=== PATIENT | male | born 1965 | race American Indian/Alaskan Native ===

== ENCOUNTER 2019-09-20 13:38 | Inpatient (IN) | payer MEDICAID ==
[2019-09-20 14:40] LABS: Basophils % (Auto) 0.3 % (0.0-1.8); Eosinophils % (Auto) 0.2 % (0.0-4.3); Lymphocytes # (Auto) 1.7 K/mm3 (1.2-5.4); Lymphocytes % (Auto) 13.3 % (13.4-35.0); Mean Corpuscular HGB Conc 30 % (32-34); Mean Corpuscular Volume 89 fl (84-94); Monocytes # (Auto) 0.8 K/mm3 (0.0-0.8); Monocytes % (Auto) 6.8 % (0.0-7.3); Platelet Count 470 K/mm3 (140-440); Red Blood Count 2.08 M/mm3 (3.65-5.03)
[2019-09-20 14:56] LABS: Albumin 4.3 g/dL (3.9-5); Calcium 9.4 mg/dL (8.4-10.2); Hematocrit 18.5 % (35.5-45.6); Hemoglobin 5.6 gm/dl (11.8-15.2)
[2019-09-20 14:57] LABS: Red Cell Distribution Width 22.6 % (13.2-15.2)
[2019-09-20] MEDS ORDERED: SODIUM CHLORIDE 0.9% 500 ML 500 ML IV ONE (15:00)
[2019-09-20] MEDS ORDERED: SODIUM CHLORIDE 0.9% 1000 ML 1,000 ML IV ONE (15:00)
[2019-09-20] MEDS ORDERED: PANTOPRAZOLE 40 MG INJ IV ONE (15:07)
--- NOTE | 2019-09-20 15:17 | Emergency Department Report ---
HPI - General Chief Complaint: Abdominal Pain PUI?: No Time Seen by Provider: 09/20/19 14:53 - HPI HPI: Room 3 The patient is a 54-year-old male present with a chief complaint of black stool and dyspnea. The patient states he has had dyspnea on exertion for 1 week. The patient states 2 days ago he noticed his stools were black. Patient has occasional episodes of black emesis. The patient states he had a similar episode 10 years ago and underwent EGD but does not recall the results ED Past Medical Hx - Past Medical History Previous Medical History?: Yes Hx Hypertension: Yes Additional medical history: pancreatitis - Surgical History Past Surgical History?: No - Family History Family history: no significant - Social History Smoking Status: Never Smoker Substance Use Type: None (Denies illicit drug use) ED Review of Systems ROS: Stated complaint: ABD PAIN, SOB, DIZZY Other details as noted in HPI Constitutional: malaise Respiratory: shortness of breath Cardiovascular: dyspnea on exertion Gastrointestinal: abdominal pain, hematemesis, melena Physical Exam - Physical Exam Vital Signs: Vital Signs 09/20/19 09/20/19 13:46 14:32 Temperature 98.5 F Pulse Rate 151 H 117 H Respiratory 16 15 Rate Blood Pressure 114/70 Blood Pressure 136/86 [Left] O2 Sat by Pulse 99 100 Oximetry Physical Exam: GENERAL: The patient is well-developed well-nourished male lying on stretcher not appearing to be in acute distress. [] HEENT: Normocephalic. Atraumatic. Extraocular motions are intact. Patient has moist mucous membranes. NECK: Supple. Trachea midline CHEST/LUNGS: Clear to auscultation. There is no respiratory distress noted. HEART/CARDIOVASCULAR: Regular. There is no tachycardia. There is no gallop rub or murmur. ABDOMEN: Abdomen is soft, with mild discomfort to palpation in the right upper quadrant, midepigastric and left upper quadrant. Patient has normal bowel sounds. There is no abdominal distention. SKIN: There is no rash. There is no edema. There is no diaphoresis. NEURO: The patient is awake, alert, and oriented. The patient is cooperative. The patient has no focal neurologic deficits. The patient has normal speech MUSCULOSKELETAL: There is no evidence of acute injury. RECTAL: Melena, guaiac positive ED Course Vital Signs 09/20/19 09/20/19 13:46 14:32 Temperature 98.5 F Pulse Rate 151 H 117 H Respiratory 16 15 Rate Blood Pressure 114/70 Blood Pressure 136/86 [Left] O2 Sat by Pulse 99 100 Oximetry - Consultations Consultation #1: 09/20/19 15:20 GI paged-Case discussed with Dr. Birch ED Medical Decision Making - Lab Data Result diagrams: 09/20/19 14:19 09/20/19 14:19 Laboratory Tests 09/20/19 09/20/19 09/20/19 14:19 14:19 15:33 WBC 12.4 H RBC 2.08 L Hgb 5.6 L* Hct 18.5 L* MCV 89 MCH 27 L MCHC 30 L RDW 22.6 H Plt Count 470 H Lymph % (Auto) 13.3 L [place] % (Auto) 6.8 Eos % (Auto) 0.2 Baso % (Auto) 0.3 Lymph # 1.7 [place] # 0.8 Eos # 0.0 Baso # 0.0 Seg Neutrophils % 79.4 H Seg Neutrophils # 9.9 H PT 14.7 INR 1.14 H APTT 28.0 Sodium 136 L Potassium 4.7 Chloride 98.8 Carbon Dioxide 16 L Anion Gap 26 BUN 43 H Creatinine 1.5 Estimated GFR 49 BUN/Creatinine Ratio 29 Glucose 113 H Calcium 9.4 Total Bilirubin 0.40 AST 37 ALT 35 Alkaline Phosphatase 43 Total Protein 7.7 Albumin 4.3 Albumin/Globulin Ratio 1.3 Lipase 09/20/19 15:33 WBC RBC Hgb Hct MCV MCH MCHC RDW Plt Count Lymph % (Auto) [place] % (Auto) Eos % (Auto) Baso % (Auto) Lymph # [place] # Eos # Baso # Seg Neutrophils % Seg Neutrophils # PT INR APTT Sodium Potassium Chloride Carbon Dioxide Anion Gap BUN Creatinine Estimated GFR BUN/Creatinine Ratio Glucose Calcium Total Bilirubin AST ALT Alkaline Phosphatase Total Protein Albumin Albumin/Globulin Ratio Lipase 19 - Differential Diagnosis gi bleed Critical care attestation.: If time is entered above; I have spent that time in minutes in the direct care of this critically ill patient, excluding procedure time. ED Disposition Clinical Impression: GI bleed Disposition: DC OP ADMIT IP TO THIS HOSP Is pt being admited?: Yes Does the pt Need Aspirin: No Condition: Serious Time of Disposition: 16:24 (Hospitalist paged (Dr. Rogers))
[2019-09-20 16:16] LABS: INR 1.14 (0.87-1.13)
--- NOTE | 2019-09-20 16:53 | History and Physical Report ---
History of Present Illness Chief complaint: I have dark bloody stool History of present illness: 54 YO Male with HTN, Pancreatitis presents to ED for evaluation. Patient states that he has experienced multiple episodes of dark tarry and bloody stools over the past 1 week with increasing frequency of the aforementioned symptoms over the past 3 days. Patient acknowledges multiple loose stools, abdominal discomfort, and generalized weakness. Patient Mason was transported to [facility] for further evaluation and care via private vehicle. Patient seen and evaluated in ED upon arrival. Patient lab and imaging studies reviewed. Patient found to have clinical symptoms consistent with GI bleed. Patient was found to be Hemoccult positive in the emergency department. Patient was found to have a hemoglobin of 5 with symptoms consistent with blood loss anemia. Patient admitted to [facility] due to increased risk of hematologic decompensation. Patient initiated on GI bleed protocol. GI team consulted in ED. Patient initiated on packed red blood cell transfusion, PPI therapy, and supportive care. Patient denies fever, chills, chest pain, NSAID use, palpitations, productive cough, syncope, recent ill contacts, ingestion of food/water from new or different sources, shortness of breath, or known exposure to COVID-19. No prior admission for review. No medication listed at time of admission for reconciliation. Past History Past Medical History: hypertension, other (See HPI) Past Surgical History: No surgical history, Other (Reviewed) Social history: single. denies: smoking, alcohol abuse, prescription drug abuse Family history: hypertension Medications and Allergies Allergies Allergy/AdvReac Type Severity Reaction Status Date / Time No Known Allergies Allergy Unverified 09/20/19 13:49 Active Meds: Active Medications Pantoprazole Sodium 80 mg/ (Sodium Chloride) 100 mls @ 10 mls/hr IV DIRECT HUSSAIN Review of Systems Constitutional: weakness, no weight loss, no weight gain, no fever, no chills Ears, nose, mouth and throat: no ear pain, no ear discharge, no tinnitis, no decreased hearing, no nose pain Cardiovascular: no chest pain, no orthopnea, no palpitations, no rapid/irregular heart beat, no edema Respiratory: no cough, no cough with sputum, no excessive sputum, no hemoptysis Gastrointestinal: nausea, diarrhea, melena, no constipation, no hematemesis Genitourinary Male: no dysuria, no hematuria, no flank pain, no discharge, no ur inary frequency, no urinary hesitancy Rectal: no pain, no incontinence, no bleeding Musculoskeletal: no neck stiffness, no neck pain, no shooting arm pain, no arm numbness/tingling, no low back pain, no shooting leg pain Integumentary: no rash, no pruritis, no redness, no sores, no wounds Neurological: no paralysis, no weakness, no parathesias, no numbness, no tingling, no seizures Psychiatric: no anxiety, no memory loss, no change in sleep habits, no insomnia, no change in appetite Endocrine: no cold intolerance, no heat intolerance, no excessive thirst, no polydipsia, no polyuria, no nocturia Hematologic/Lymphatic: no easy bruising, no easy bleeding, no lymphadenopathy, no lymphedema Allergic/Immunologic: no allergic rhinitis, no anaphylaxis Exam - Constitutional Vitals: Temp Pulse Resp BP Pulse Ox 98.5 F 122 H 13 144/90 100 09/20/19 13:46 09/20/19 15:30 09/20/19 15:30 09/20/19 15:30 09/20/19 15:30 General appearance: Present: mild distress - EENT Eyes: Present: EOM intact. Absent: scleral icterus (Conjunctival pallor) ENT: hearing intact, clear oral mucosa - Neck Neck: Present: supple, normal ROM - Respiratory Respiratory effort: normal Respiratory: bilateral: CTA - Cardiovascular Heart Sounds: Present: S1 & S2. Absent: rub, click - Extremities Extremities: pulses symmetrical, No edema Peripheral Pulses: within normal limits - Abdominal General gastrointestinal: Present: soft, non-tender, non-distended, normal bowel sounds Male genitourinary: Present: normal - Integumentary Integumentary: Present: clear, warm, dry - Musculoskeletal Musculoskeletal: gait normal, strength equal bilaterally - Psychiatric Psychiatric: appropriate mood/affect, intact judgment & insight - Neurologic Neurologic: CNII-XII intact, moves all extremities Results - Labs CBC & Chem 7: 09/20/19 14:19 09/20/19 14:19 Labs: Abnormal lab results 09/20/19 09/20/19 09/20/19 Range/Units 14:19 14:19 15:33 WBC 12.4 H (4.5-11.0) K/mm3 RBC 2.08 L (3.65-5.03) M/mm3 Hgb 5.6 L* (11.8-15.2) gm/dl Hct 18.5 L* (35.5-45.6) % MCH 27 L (28-32) pg MCHC 30 L (32-34) % RDW 22.6 H (13.2-15.2) % Plt Count 470 H (140-440) K/mm3 Lymph % (Auto) 13.3 L (13.4-35.0) % Seg Neutrophils % 79.4 H (40.0-70.0) % Seg Neutrophils # 9.9 H (1.8-7.7) K/mm3 INR 1.14 H (0.87-1.13) Sodium 136 L (137-145) mmol/L Carbon Dioxide 16 L (22-30) mmol/L BUN 43 H (9-20) mg/dL Glucose 113 H (75-100) mg/dL Crossmatch 09/20/19 Range/Units 15:33 WBC (4.5-11.0) K/mm3 RBC (3.65-5.03) M/mm3 Hgb (11.8-15.2) gm/dl Hct (35.5-45.6) % MCH (28-32) pg MCHC (32-34) % RDW (13.2-15.2) % Plt Count (140-440) K/mm3 Lymph % (Auto) (13.4-35.0) % Seg Neutrophils % (40.0-70.0) % Seg Neutrophils # (1.8-7.7) K/mm3 INR (0.87-1.13) Sodium (137-145) mmol/L Carbon Dioxide (22-30) mmol/L BUN (9-20) mg/dL Glucose (75-100) mg/dL Crossmatch See Detail Assessment and Plan - Patient Problems (1) Gastrointestinal hemorrhage Current Visit: Yes Status: Acute Qualifiers: Gastritis type: unspecified gastritis Plan to address problem: Admit to IMCU, GI bleed protocol, gastroenterology team consulted in ED, patient is pending endoscopy as per GI team, PRBC transfusion, repeat CBC, repeat CBC in a.m., PPI therapy, supportive care. (2) Metabolic acidosis Current Visit: Yes Status: Acute Plan to address problem: IV bicarbonate therapy, BMP, repeat BMP in a.m. (3) Blood loss anemia Current Visit: Yes Status: Acute Plan to address problem: Packed red blood cell transfusion, CBC, repeat CBC in a.m. (4) Hyponatremia syndrome Current Visit: Yes Status: Acute Plan to address problem: IV fluid resuscitation therapy, BMP, repeat BMP in a.m. (5) DVT prophylaxis Current Visit: Yes Status: Acute Plan to address problem: SCD to bilateral lower extremities while in bed, hold anticoagulation for now due to GI bleed.
[2019-09-20] MEDS ORDERED: SODIUM BICARB 8.4% 50 MEQ/50 ML SYRINGE IV ONE (16:54)
[2019-09-20] MEDS ORDERED: SODIUM CHLORIDE 0.9% 500 ML 500 ML IV SCH (16:54)
[2019-09-20] MEDS: SODIUM CHLORIDE 0.9% 1000 ML 1,000 ML IV SCH (18:18)
[2019-09-20] MEDS: PANTOPRAZOLE 80 MG in SODIUM CHLORIDE 0.9% 100 ML IV SCH (18:18)
[2019-09-20 18:44] LABS: Bilirubin,Urine NEG (Negative); Blood,Urine NEG (Negative); Color,Urine Yellow (Yellow); Mucus,Urine FEW /HPF; Protein,Urine <15 mg/dL mg/dL (Negative); Urobilinogen,Urine < 2.0 mg/dL (<2.0)
--- NOTE | 2019-09-20 18:50 | Gastroenterology Consultation ---
History of Present Illness - Reason for Consult Consult date: 09/20/19 Melena Requesting physician: ANALY PARTIDA - History of Present Illness The patient is a 54 yo male admitted with melena for one week. He has had this about 10 years ago, and an EGD was performed. The patient is not sure if an ulcer was seen. He has been taking multiple ibuprofen daily without GI prophylaxis for an arthritic R hip. He has no hematemesis, severe abdominal pain, nausea/vomiting, or chest pain/shortness of breath. Past History Past Medical History: hypertension Past Surgical History: No surgical history Social history: single. denies: smoking, alcohol abuse, prescription drug abuse Family history: hypertension Medications and Allergies Allergies Allergy/AdvReac Type Severity Reaction Status Date / Time No Known Allergies Allergy Unverified 09/20/19 13:49 Active Meds: Active Medications Pantoprazole Sodium 80 mg/ (Sodium Chloride) 100 mls @ 10 mls/hr IV DIRECT HUSSAIN Last Admin: 09/20/19 18:18 Dose: 8 mg/hr, 10 mls/hr Documented by: Sodium Chloride (Nacl 0.9% 500 Ml) 500 mls @ 0 mls/hr IV ONCE HUSSAIN Sodium Chloride (Nacl 0.9% 1000 Ml) 1,000 mls @ 125 mls/hr IV DIRECT HUSSAIN Last Admin: 09/20/19 18:18 Dose: 125 mls/hr Documented by: Sodium Chloride (Sodium Chloride Flush Syringe 10 Ml) 10 ml IV BID HUSSAIN Sodium Chloride (Sodium Chloride Flush Syringe 10 Ml) 10 ml IV PRN PRN PRN Reason: LINE FLUSH I HAVE REVIEWED AND RECONCILED MEDICATIONS. Review of Systems - Review of Systems All systems: negative (as noted in the HPI.) Exam - Constitutional Vital Signs: Temp Pulse Resp BP Pulse Ox 99.3 F 121 H 12 139/95 100 09/20/19 18:22 09/20/19 18:22 09/20/19 18:22 09/20/19 18:22 09/20/19 18:22 General appearance: no acute distress - EENT Eyes: PERRL, EOM intact ENT: hearing intact, clear oral mucosa - Neck Neck: supple, normal ROM - Respiratory Respiratory effort: normal Respiratory: bilateral: CTA - Cardiovascular Rhythm: regular Heart Sounds: Present: S1 & S2 Extremities: no ischemia, No edema - Gastrointestinal General gastrointestinal: Present: soft, non-tender, non-distended - Integumentary Integumentary: Present: clear, warm, dry - Neurologic Neurological: alert and oriented x3 - Labs CBC & Chem 7: 09/20/19 14:19 09/20/19 14:19 Lab Results: Laboratory Results - last 24 hr 09/20/19 09/20/19 09/20/19 14:19 14:19 15:33 WBC 12.4 H RBC 2.08 L Hgb 5.6 L* Hct 18.5 L* MCV 89 MCH 27 L MCHC 30 L RDW 22.6 H Plt Count 470 H Lymph % (Auto) 13.3 L [place] % (Auto) 6.8 Eos % (Auto) 0.2 Baso % (Auto) 0.3 Lymph # 1.7 [place] # 0.8 Eos # 0.0 Baso # 0.0 Seg Neutrophils % 79.4 H Seg Neutrophils # 9.9 H PT 14.7 INR 1.14 H APTT 28.0 Sodium 136 L Potassium 4.7 Chloride 98.8 Carbon Dioxide 16 L Anion Gap 26 BUN 43 H Creatinine 1.5 Estimated GFR 49 BUN/Creatinine Ratio 29 Glucose 113 H Calcium 9.4 Total Bilirubin 0.40 AST 37 ALT 35 Alkaline Phosphatase 43 Total Protein 7.7 Albumin 4.3 Albumin/Globulin Ratio 1.3 Lipase Urine Bilirubin Urine RBC (Auto) U Epithel Cells (Auto) Blood Type Antibody Screen Crossmatch 09/20/19 09/20/19 09/20/19 15:33 15:33 Unknown WBC RBC Hgb Hct MCV MCH MCHC RDW Plt Count Lymph % (Auto) [place] % (Auto) Eos % (Auto) Baso % (Auto) Lymph # [place] # Eos # Baso # Seg Neutrophils % Seg Neutrophils # PT INR APTT Sodium Potassium Chloride Carbon Dioxide Anion Gap BUN Creatinine Estimated GFR BUN/Creatinine Ratio Glucose Calcium Total Bilirubin AST ALT Alkaline Phosphatase Total Protein Albumin Albumin/Globulin Ratio Lipase 19 Urine Bilirubin Neg Urine RBC (Auto) 1.0 U Epithel Cells (Auto) 1.0 Blood Type A POSITIVE Antibody Screen Negative Crossmatch See Detail Assessment and Plan - Patient Problems (1) Melena Current Visit: Yes Status: Acute Plan to address problem: - Given ibuprofen use and prior GI bleed, likely PUD. - Agree with transfusion and fluid resuscitation. - Patient already on PPI gtt. - NPO after Mn (may have clears) with EGD in the AM. - D/C all NSAIDs.
[2019-09-21] MEDS: PANTOPRAZOLE 80 MG in SODIUM CHLORIDE 0.9% 100 ML IV SCH (03:53)
[2019-09-21] MEDS: SODIUM CHLORIDE 0.9% 1000 ML 1,000 ML IV SCH ×3 (03:55→20:53)
[2019-09-21 05:54] LABS: Basophils % (Auto) 0.5 % (0.0-1.8); Eosinophils # (Auto) 0.1 K/mm3 (0.0-0.4); Eosinophils % (Auto) 0.6 % (0.0-4.3); Hemoglobin 6.6 gm/dl (11.8-15.2); Lymphocytes # (Auto) 1.7 K/mm3 (1.2-5.4); Lymphocytes % (Auto) 18.3 % (13.4-35.0); Mean Corpuscular HGB Conc 33 % (32-34); Mean Corpuscular Volume 85 fl (84-94); Monocytes # (Auto) 0.8 K/mm3 (0.0-0.8); Monocytes % (Auto) 8.5 % (0.0-7.3); Platelet Count 355 K/mm3 (140-440); Red Blood Count 2.34 M/mm3 (3.65-5.03); Red Cell Distribution Width 19.2 % (13.2-15.2)
[2019-09-21 06:17] LABS: Alanine Aminotransferase 25 units/L (7-56); Albumin 3.5 g/dL (3.9-5); BUN/Creatinine Ratio 25; Blood Urea Nitrogen 32 mg/dL (9-20); Calcium 8.5 mg/dL (8.4-10.2); Hemolysis Index 2
[2019-09-21 06:25] LABS: Hematocrit 19.9 % (35.5-45.6)
[2019-09-21] MEDS ORDERED: SODIUM CHLORIDE 0.9% 500 ML 500 ML IV NR (06:32)
[2019-09-21] MEDS ORDERED: SODIUM CHLORIDE 0.9% 1000 ML 1,000 ML IV SCH (08:30)
[2019-09-21] MEDS ORDERED: traMADol 50 MG TAB PO PRN (08:35)
[2019-09-21] MEDS ORDERED: WATER FOR IRRIG STERILE 250 ML BOTTLE IR ONE (08:38)
[2019-09-21] MEDS ORDERED: WATER FOR IRRIG STERILE 1,000 ML BOTTLE ONE (08:38)
--- NOTE | 2019-09-21 08:59 | XRay Report ---
CHEST 1 VIEW INDICATION / CLINICAL INFORMATION: shortness of breath. COMPARISON: None available. FINDINGS: SUPPORT DEVICES: None. HEART / MEDIASTINUM: No significant abnormality. LUNGS / PLEURA: No significant pulmonary or pleural abnormality. No pneumothorax. ADDITIONAL FINDINGS: Bilateral anterior cervical ribs. IMPRESSION: 1. No acute findings. Signer Name: Atul Alvarado MD Signed: 09/21/2019 8:54 AM Workstation Name: [id number]
[2019-09-21] MEDS ORDERED: hydrALAZINE 20 MG/1 ML INJ IV PRN (09:00)
[2019-09-21] MEDS ORDERED: LIDOCAINE MPF (2%) 20 MG/1 ML VIAL 5 ML ONE (09:00)
--- NOTE | 2019-09-21 09:04 | Anesthesia Consultation ---
Anesthesia Consult and Med Hx Date of service: 09/21/19 - Airway Anesthetic Teeth Evaluation: Good ROM Head & Neck: Adequate Mental/Hyoid Distance: Adequate Mallampati Class: Class III Intubation Access Assessment: Possibly Difficult - Pre-Operative Health Status ASA Pre-Surgery Classification: ASA3, Emergency Proposed Anesthetic Plan: MAC - Pulmonary Hx Smoking: Yes ([id number]) Hx Asthma: No COPD: No Hx Pneumonia: No - Cardiovascular System Hx Hypertension: Yes Hx Heart Attack/AMI: No - Central Nervous System Hx Seizures: No Hx Back Pain: Yes (hip pain, takes NSAIDs) - Gastrointestinal Hx Ulcer: Yes (GI bleed) - Endocrine Hx End Stage Renal Disease: No - Hematic Hx Anemia: Yes - Other Systems Hx Cancer: No
--- NOTE | 2019-09-21 09:06 | Anesthesia Day of Surgery ---
Anesthesia Day of Surgery - Day of Surgery Patient Examined: Yes Patient H&P Reviewed: Yes Patient is NPO: Yes
[2019-09-21] MEDS ORDERED: propofoL 200 MG/20 ML VIAL IV ONE (09:10)
[2019-09-21] MEDS: amLODIPine 10 MG TAB PO SCH (09:55)
[2019-09-21] MEDS: LISINOPRIL 20 MG TAB PO SCH (09:55)
--- NOTE | 2019-09-21 10:01 | Operative Report ---
Operative Report Operative Report: DOS: 09/21/19 SURGEON: Stephen Means MD EGD with biopsy REPORT PREOPERATIVE DIAGNOSIS and POSTOPERATIVE DIAGNOSIS: GI Bleed ESTIMATED BLOOD LOSS: minimal DESCRIPTION OF PROCEDURE: A high-resolution EGD scope was passed through the oropharynx, esophagus, stomach, and second portion of duodenum. The scope was carefully withdrawn. Retroflexion was performed in the stomach. At the end of the procedure, the scope was cleaned using normal technique. Vital signs monitored continuously throughout. SEDATION: Provided by Anesthesiology Services. COMPLICATIONS: None. FINDINGS: * Normal second portion of the duodenum * Mild duodenitis of the duodenal bulb with erythema * Multiple ulcers in the gastric antrum as well as a single ulcer in the pyloric channel. Total of 6 ulcers visualized, ranging in size from 2 mm in diameter to 6 mm in diameter they were all clean based and superficial with no active bleeding seen. Cold forceps biopsies obtained from the edges of the 2 largest ulcers as well as biopsies were taken to rule out H. Pylori infection. A total of 5 biopsies were taken, 2 from the antrum, 1 from the incisura, 2 from the body. * GE junction at approximately 40 cm from incisors * Possible C0 M1 Garland's esophagus seen, random biopsies obtained to rule out Garland's esophagus * Remainder of the exam was normal RECOMMENDATIONS: * Continue Protonix drip for another 24 hours, and as long as no more melena and hemoglobin stabilized then can switch to Protonix 40 mg p.o. twice daily and discharge with outpatient follow-up in approximately 2 weeks, and patient would benefit from a repeat EGD in approximately 6 weeks to ensure complete resolution of the ulcers * Patient may start on clear liquid diet and advance as tolerated * Follow-up pathology results
--- NOTE | 2019-09-21 11:41 | Progress Note ---
Assessment and Plan Assessment and plan: 54 YO Male with HTN, Pancreatitis presents to ED for evaluation. Patient states that he has experienced multiple episodes of dark tarry and bloody stools over the past 1 week with increasing frequency of the aforementioned symptoms over the past 3 days. Patient acknowledges multiple loose stools, abdominal discomfort, and generalized weakness. Patient Mason was transported to [facility] for further evaluation and care via private vehicle. Patient seen and evaluated in ED upon arrival. Patient lab and imaging studies reviewed. Patient found to have clinical symptoms consistent with GI bleed. Patient was found to be Hemoccult positive in the emergency department. Patient was found to have a hemoglobin of 5 with symptoms consistent with blood loss anemia. Patient admitted to [facility] due to increased risk of hematologic decompensation. Patient initiated on GI bleed protocol. GI team consulted in ED. Patient initiated on packed red blood cell transfusion, PPI therapy, and supportive care. Patient denies fever, chills, chest pain, NSAID use, palpitations, productive cough, syncope, recent ill contacts, ingestion of food/water from new or different sources, shortness of breath, or known exposure to COVID-19. No prior admission for review. No medication listed at time of admission for reconciliation. Acute GI bleed * EGD finding, Barretts and duodenitis Over use of NSAIDS Acute Metabolic Acidosis Acute Blood Loss Anemia Hypertension Hyponatremia Syndrome Chronic Opioid Dependance Arthritis Plan S/P EGD GI input noted Continue supportive care Continue with PRBC transfusion Resume home medications, Lisinopril, norvasc Pain control Advised patient against use of NSAIDS Continue Protonix drip for another 24 hours, and as long as no more melena and hemoglobin stabilized then can switch to Protonix 40 mg p.o. twice daily and discharge with outpatient follow-up in approximately 2 weeks, and patient would benefit from a repeat EGD in approximately 6 weeks to ensure complete resolution of the ulcers Patient may start on clear liquid diet and advance as tolerated Follow-up pathology results History Interval history: Patient seen and examined, no acute issues at this time. Hospitalist Physical - Physical exam Narrative exam: VITAL SIGNS: Reviewed. GENERAL: The patient appears normally developed, Vital signs as documented. HEAD: No signs of head trauma. EYES: Pupils are equal. Extraocular motions intact. EARS: Hearing grossly intact. MOUTH: Oropharynx is normal. NECK: No adenopathy, no JVD. CHEST: Chest with clear breath sounds bilaterally. No wheezes, rales, or rhonchi. CARDIAC: Regular rate and rhythm. S1 and S2, without murmurs, gallops, or rubs. VASCULAR: No Edema. Peripheral pulses normal and equal in all extremities. ABDOMEN: Soft, non tender and non distended. No rebound or guarding, and no masses palpated. Bowel Sounds normal. MUSCULOSKELETAL: Good range of motion of all major joints. Extremities without clubbing, cyanosis or edema. NEUROLOGIC EXAM: Alert and oriented x 3 No focal sensory or strength de ficits. Speech normal. Follows commands. PSYCHIATRIC: Mood normal. SKIN: detial exam as documented in skin assessment - Constitutional Vitals: Temp Pulse Resp BP Pulse Ox 97.7 F 95 H 13 146/89 99 09/21/19 09:34 09/21/19 11:00 09/21/19 11:00 09/21/19 11:00 09/21/19 11:00 General appearance: Present: mild distress Results - Labs CBC & Chem 7: 09/21/19 04:45 09/21/19 04:45 Labs: Laboratory Last Values WBC 9.5 K/mm3 (4.5-11.0) 09/21/19 04:45 RBC 2.34 M/mm3 (3.65-5.03) L 09/21/19 04:45 Hgb 6.6 gm/dl (11.8-15.2) L 09/21/19 04:45 Hct 19.9 % (35.5-45.6) L* 09/21/19 04:45 MCV 85 fl (84-94) 09/21/19 04:45 MCH 28 pg (28-32) 09/21/19 04:45 MCHC 33 % (32-34) 09/21/19 04:45 RDW 19.2 % (13.2-15.2) H 09/21/19 04:45 Plt Count 355 K/mm3 (140-440) 09/21/19 04:45 Lymph % (Auto) 18.3 % (13.4-35.0) 09/21/19 04:45 [place] % (Auto) 8.5 % (0.0-7.3) H 09/21/19 04:45 Eos % (Auto) 0.6 % (0.0-4.3) 09/21/19 04:45 Baso % (Auto) 0.5 % (0.0-1.8) 09/21/19 04:45 Lymph # 1.7 K/mm3 (1.2-5.4) 09/21/19 04:45 [place] # 0.8 K/mm3 (0.0-0.8) 09/21/19 04:45 Eos # 0.1 K/mm3 (0.0-0.4) 09/21/19 04:45 Baso # 0.0 K/mm3 (0.0-0.1) 09/21/19 04:45 Seg Neutrophils % 72.1 % (40.0-70.0) H 09/21/19 04:45 Seg Neutrophils # 6.8 K/mm3 (1.8-7.7) 09/21/19 04:45 PT 14.7 Sec. (12.2-14.9) 09/20/19 15:33 INR 1.14 (0.87-1.13) H 09/20/19 15:33 APTT 28.0 Sec. (24.2-36.6) 09/20/19 15:33 Sodium 140 mmol/L (137-145) 09/21/19 04:45 Potassium 4.4 mmol/L (3.6-5.0) 09/21/19 04:45 Chloride 103.3 mmol/L (98-107) 09/21/19 04:45 Carbon Dioxide 22 mmol/L (22-30) 09/21/19 04:45 Anion Gap 19 mmol/L 09/21/19 04:45 BUN 32 mg/dL (9-20) H 09/21/19 04:45 Creatinine 1.3 mg/dL (0.8-1.5) 09/21/19 04:45 Estimated GFR > 60 ml/min 09/21/19 04:45 BUN/Creatinine Ratio 25 % 09/21/19 04:45 Glucose 96 mg/dL (75-100) 09/21/19 04:45 POC Glucose 102 (70-105) 09/21/19 07:53 Calcium 8.5 mg/dL (8.4-10.2) 09/21/19 04:45 Total Bilirubin 0.60 mg/dL (0.1-1.2) 09/21/19 04:45 AST 29 units/L (5-40) 09/21/19 04:45 ALT 25 units/L (7-56) 09/21/19 04:45 Alkaline Phosphatase 34 units/L (35-129) L 09/21/19 04:45 Total Protein 6.5 g/dL (6.3-8.2) 09/21/19 04:45 Albumin 3.5 g/dL (3.9-5) L 09/21/19 04:45 Albumin/Globulin Ratio 1.2 % 09/21/19 04:45 Lipase 19 units/L (13-60) 09/20/19 15:33 Urine Color Yellow (Yellow) 09/20/19 Unknown Urine Turbidity Clear (Clear) 09/20/19 Unknown Urine pH 5.0 (5.0-7.0) 09/20/19 Unknown Ur Specific [place] 1.015 (1.003-1.030) 09/20/19 Unknown Urine Protein <15 mg/dl mg/dL (Negative) 09/20/19 Unknown Urine Glucose (UA) Neg mg/dL (Negative) 09/20/19 Unknown Urine Ketones Neg mg/dL (Negative) 09/20/19 Unknown Urine Blood Neg (Negative) 09/20/19 Unknown Urine Nitrite Neg (Negative) 09/20/19 Unknown Urine Bilirubin Neg (Negative) 09/20/19 Unknown Urine Urobilinogen < 2.0 mg/dL (<2.0) 09/20/19 Unknown Ur Leukocyte Esterase Neg (Negative) 09/20/19 Unknown Urine WBC (Auto) 1.0 /HPF (0.0-6.0) 09/20/19 Unknown Urine RBC (Auto) 1.0 /HPF (0.0-6.0) 09/20/19 Unknown U Epithel Cells (Auto) 1.0 /HPF (0-13.0) 09/20/19 Unknown Urine Mucus Few /HPF 09/20/19 Unknown Blood Type A POSITIVE 09/20/19 15:33 Antibody Screen Negative 09/20/19 15:33 Crossmatch See Detail 09/20/19 15:33 Microbiology: Microbiology 09/20/19 15:07 Stool Stool Occult Blood (HANNAH) - Final Gaspar/IV: Voiding Method Toilet IV Catheter Type [Left Forearm Peripheral IV ] IV Catheter Type [Right Peripheral IV Forearm] Active Medications - Current Medications Current Medications: Generic Name Dose Route Start Last Admin Trade Name Freq PRN Reason Stop Dose Admin Amlodipine Besylate 10 mg 09/21/19 10:00 09/21/19 09:55 Amlodipine PO 10 mg QDAY HUSSAIN Administration Hydralazine HCl 10 mg 09/21/19 09:00 Apresoline IV Q4H PRN Hypertension Pantoprazole Sodium 80 mg/ 100 mls @ 10 mls/hr 09/20/19 16:00 09/21/19 03:53 Sodium Chloride IV 8 mg/hr DIRECT HUSSAIN 10 mls/hr Administration 8 MG/HR Sodium Chloride 500 mls @ 0 mls/hr 09/20/19 16:54 09/20/19 22:01 Nacl 0.9% 500 Ml IV 0 mls/hr ONCE HUSSAIN Infusion As Directed Sodium Chloride 1,000 mls @ 125 mls/hr 09/20/19 17:00 09/21/19 11:38 Nacl 0.9% 1000 Ml IV 125 mls/hr DIRECT HUSSAIN Administration Sodium Chloride 500 mls @ 0 mls/hr 09/21/19 06:32 Nacl 0.9% 500 Ml IV 09/21/19 16:00 ONCE NR As Directed Sodium Chloride 1,000 mls @ 50 mls/hr 09/21/19 08:30 Nacl 0.9% 1000 Ml IV DIRECT HUSSAIN Lisinopril 20 mg 09/21/19 10:00 09/21/19 09:55 Zestril PO 20 mg QDAY HUSSAIN Administration Sodium Chloride 10 ml 09/20/19 22:00 09/21/19 09:55 Sodium Chloride Flush Syringe 10 Ml IV 10 ml BID HUSSAIN Administration Sodium Chloride 10 ml 09/20/19 16:55 Sodium Chloride Flush Syringe 10 Ml IV PRN PRN LINE FLUSH Tramadol HCl 50 mg 09/21/19 08:35 Ultram PO Q6H PRN Pain, Moderate (4-6)
--- NOTE | 2019-09-21 14:12 | Post Anesthesia Evaluation ---
- Post Anesthesia Evaluation Patient Participated: Yes Airway Patent: Yes Stable Respiratory Function: Yes Nausea/Vomiting: No Temp > 96.8F: Yes Pain Manageable: Yes Adequeate Hydration: Yes Anesthesia Complications: No Block Receding Appropriately: Not Applicable Patient on Ventilator: No
[2019-09-22] MEDS: PANTOPRAZOLE 80 MG in SODIUM CHLORIDE 0.9% 100 ML IV SCH (02:13)
[2019-09-22] MEDS: SODIUM CHLORIDE 0.9% 1000 ML 1,000 ML IV SCH (02:14)
--- NOTE | 2019-09-22 08:49 | Gastroenterology Progress Note ---
Assessment and Plan As long as today's posttransfusion CBC is appropriately elevated and the patient continues to have no more overt evidence of bleeding, with no melena, then can change the Protonix drip to Protonix 40 mg by mouth twice a day continue to adv ance diet and discharge patient this afternoon as long as he tolerates his diet. He will require outpatient follow-up in approximately 2 weeks to ensure his hemoglobin continues to improve that there is no more overt bleeding and to follow-up his pathology results from the biopsies he had during yesterday's EGD He will require repeat outpatient EGD in approximately 6 weeks to ensure healing of the gastric ulcers - Patient Problems (1) Gastric ulcer Current Visit: Yes Status: Acute (2) Blood loss anemia Current Visit: Yes Status: Acute (3) Gastrointestinal hemorrhage Current Visit: Yes Status: Acute Qualifiers: Gastritis type: unspecified gastritis (4) Melena Current Visit: Yes Status: Acute Subjective Date of service: 09/22/19 Principal diagnosis: GI bleed Interval history: Patient reports no abdominal pain no more melena asking for more food Objective - Constitutional Vitals: Temp Pulse Resp BP Pulse Ox 97.8 F 85 20 152/94 99 09/22/19 07:49 09/22/19 07:49 09/22/19 07:49 09/22/19 07:49 09/22/19 07:49 General appearance: no acute distress - EENT ENT: hearing intact - Respiratory Respiratory effort: normal - Cardiovascular Rhythm: regular - Gastrointestinal General gastrointestinal: Present: soft, non-tender - Labs CBC & Chem 7: 09/22/19 08:40 09/22/19 08:40 Labs: Laboratory Results - last 24 hr 09/20/19 09/21/19 15:33 12:00 POC Glucose 93 Blood Type A POSITIVE Antibody Screen Negative Crossmatch See Detail
[2019-09-22 08:53] LABS: Hemoglobin 9.3 gm/dl (11.8-15.2)
[2019-09-22 09:18] LABS: BUN/Creatinine Ratio 11; Blood Urea Nitrogen 11 mg/dL (9-20); Calcium 8.5 mg/dL (8.4-10.2); Hemolysis Index 1
[2019-09-22 09:26] LABS: Mean Corpuscular HGB Conc 34 % (32-34); Mean Corpuscular Volume 86 fl (84-94); Platelet Count 364 K/mm3 (140-440); Red Blood Count 3.25 M/mm3 (3.65-5.03)
[2019-09-22] MEDS: amLODIPine 10 MG TAB PO SCH (09:44)
[2019-09-22] MEDS: LISINOPRIL 20 MG TAB PO SCH (09:45)
[2019-09-22 12:03] VITALS: BP 146/87
--- NOTE | 2019-09-22 13:32 | Discharge Summary ---
Providers - Providers Date of Admission: 09/20/19 16:56 Attending physician: JANET BERMAN MD 09/21/19 07:37 Consult to Physician [CONS] Routine Comment: Consulting Provider: ELIZ ROGERS Physician Instructions: Reason For Exam: GI bleed Primary care physician: FIELD TEST ENGINEER Hospitalization Reason for admission: GI bleed Condition: Serious Hospital course: 54 YO Male with HTN, Pancreatitis presents to ED for evaluation. Patient states that he has experienced multiple episodes of dark tarry and bloody stools over the past 1 week with increasing frequency of the aforementioned symptoms over the past 3 days. Patient acknowledges multiple loose stools, abdominal discomfort, and generalized weakness. Patient Mason was transported to [facility] for further evaluation and care via private vehicle. Patient seen and evaluated in ED upon arrival. Patient lab and imaging studies reviewed. Patient found to have clinical symptoms consistent with GI bleed. Patient was found to be Hemoccult positive in the emergency department. Patient was found to have a hemoglobin of 5 with symptoms consistent with blood loss anemia. Patient admitted to IMCU due to increased risk of hematologic decompensation. Patient initiated on GI bleed protocol. GI team consulted in ED. Patient initiated on packed red blood cell transfusion, PPI therapy, and supportive care. Patient denies fever, chills, chest pain, NSAID use, palpitations, productive cough, syncope, recent ill contacts, ingestion of food/water from new or different sources, shortness of breath, or known exposure to COVID-19. No prior admission for review. No medication listed at time of admission for reconciliation. Patient on admission underwent endoscopy which revealed gastric ulcer. Recommendation was to continue PPI drip for additional 24 hours and then convert to p.o. twice a day Protonix. Again counseling was provided to the patient the need to quit NSAID use of all types. Patient was started on p.o. diet and is tolerating he understands that he has a follow-up with GI to discuss pathology and also possibly repeat EGD in approximately 6 weeks to ensure healing. Acute GI bleed secondary to gastric ulcer * EGD finding, gastric ulcer Barretts and duodenitis Over use of NSAIDS Acute Metabolic Acidosis Acute Blood Loss Anemia Hypertension Hyponatremia Syndrome Chronic Opioid Dependance Arthritis Disposition: TO HOME OR SELFCARE Time spent for discharge: 35 minutes Core Measure Documentation - Palliative Care Palliative Care/ Comfort Measures: Not Applicable - Core Measures Any of the following diagnoses?: none Exam - Physical Exam Narrative exam: VITAL SIGNS: Reviewed. GENERAL: The patient appears normally developed, no acute issues at this time vital signs as documented. HEAD: No signs of head trauma. EYES: Pupils are equal. Extraocular motions intact. EARS: Hearing grossly intact. MOUTH: Oropharynx is normal. NECK: No adenopathy, no JVD. CHEST: Chest with clear breath sounds bilaterally. No wheezes, rales, or rhonchi. CARDIAC: Regular rate and rhythm. S1 and S2, without murmurs, gallops, or rubs. VASCULAR: No Edema. Peripheral pulses normal and equal in all extremities. ABDOMEN: Soft, non tender and non distended. No rebound or guarding, and no masses palpated. Bowel Sounds normal. MUSCULOSKELETAL: Good range of motion of all major joints. Extremities without clubbing, cyanosis or edema. NEUROLOGIC EXAM: Alert and oriented x 3 No focal sensory or strength defi cits. Speech normal. Follows commands. PSYCHIATRIC: Mood normal. SKIN: detail exam as documented in skin assessment - Constitutional Vitals: Temp Pulse Resp BP Pulse Ox 97.0 F L 81 20 146/87 99 09/22/19 11:00 09/22/19 11:00 09/22/19 11:00 09/22/19 11:00 09/22/19 11:00 Plan Activity: advance as tolerated, fall precautions Diet: low fat Special Instructions: record daily weights, record daily BP diary Follow up with: PRIMARY CAREMD [Primary Care Provider] - 7 Days LEONOR MADRID MD [Staff Physician] - 14 Days Prescriptions: Pantoprazole [Protonix] 40 mg PO BID #60 tablet
== END 2019-09-22 16:15 | disposition home or self-care (01) | DRG 378 ==
LOC: ED 13:38 → CC1 16:56 → 4A 09-21 12:38
PROVIDERS: ADMIT Internal Medicine; ATTEND Internal Medicine
PROC: 30233N1 Transfusion of Nonautologous Red Blood Cells into Peripheral Vein, Percutaneous Approach (ICD-10-PCS; principal; 2019-09-20)
PROC: 0DB68ZX Excision of Stomach, Via Natural or Artificial Opening Endoscopic, Diagnostic (ICD-10-PCS; 2019-09-21)
PROC: 0DB38ZX Excision of Lower Esophagus, Via Natural or Artificial Opening Endoscopic, Diagnostic (ICD-10-PCS; 2019-09-21)
DX: K25.0 Acute gastric ulcer with hemorrhage (principal); E87.2 Acidosis; E87.1 Hypo-osmolality and hyponatremia; D62 Acute posthemorrhagic anemia; F11.20 Opioid dependence, uncomplicated; R65.10 Systemic inflammatory response syndrome (SIRS) of non-infectious origin without acute organ dysfunction; K22.70 Barrett's esophagus without dysplasia; K29.80 Duodenitis without bleeding; M19.90 Unspecified osteoarthritis, unspecified site; I10 Essential (primary) hypertension; Z82.49 Family history of ischemic heart disease and other diseases of the circulatory system; Z87.11 Personal history of peptic ulcer disease; K92.1 Melena; Z79.1 Long term (current) use of non-steroidal anti-inflammatories (NSAID)
CPT/HCPCS: 36415; 71045; 80048; 80053; 81001; 82271; 82962; 83690; 85025; 85027; 85610; 85730; 86850; 86900; 86901; 86920; 88305; 88342; 93005; G0378; C9113; J0360; J2704; J7030; J7040; P9016

== ENCOUNTER 2020-09-14 08:39 | Emergency (ER) | payer MEDICAID ==
[2020-09-14 09:35] VITALS: BP 158/96
== END 2020-09-14 14:59 ==
LOC: ED 08:39
DX: M25.551 Pain in right hip (principal); Z53.21 Procedure and treatment not carried out due to patient leaving prior to being seen by health care provider